=== PATIENT | female | born 1960 | race Caucasian/White ===

== ENCOUNTER 2018-03-12 10:30 | Outpatient (CLI) | payer MEDICARE, MEDICAID | END 2018-03-12 10:31 | disposition home or self-care (01) | LOC: BICULT 10:30 | PROVIDERS: ATTEND Internal Medicine Nephrology | DX: Z12.31 Encounter for screening mammogram for malignant neoplasm of breast (principal); I12.9 Hypertensive chronic kidney disease with stage 1 through stage 4 chronic kidney disease, or unspecified chronic kidney disease; N18.3 Chronic kidney disease, stage 3 (moderate) | CPT/HCPCS: 76700; 76770; 77063; 77067 ==

== ENCOUNTER 2019-04-09 20:30 | Outpatient (CLI) | payer MEDICARE, MEDICAID | END 2019-04-09 20:31 | disposition home or self-care (01) | LOC: SLEEPLAB 20:30 | PROVIDERS: ATTEND Internal Medicine Cardiovascular Disease | DX: G47.33 Obstructive sleep apnea (adult) (pediatric) (principal); I10 Essential (primary) hypertension; G47.00 Insomnia, unspecified; G47.10 Hypersomnia, unspecified; K21.9 Gastro-esophageal reflux disease without esophagitis; M79.606 Pain in leg, unspecified; E66.9 Obesity, unspecified; Z68.30 Body mass index [BMI] 30.0-30.9, adult | CPT/HCPCS: 95810 ==

== ENCOUNTER 2019-08-03 13:19 | Outpatient (CLI) | payer MEDICARE, MEDICAID ==
--- NOTE | 2019-08-03 13:57 | RAD ---
Exam: 3 views left toes HISTORY: Pain. Injury. Dropped walker on her foot. Fourth and fifth pain. FINDINGS: No fracture, cortical irregularity or periosteal reaction. Preserved joint spaces. IMPRESSION: No fracture.
--- NOTE | 2019-08-03 14:02 | RAD ---
Exam:3 views left foot HISTORY: Fourth and fifth digit pain. Patient dropped walker on foot. COMPARISON: None FINDINGS: Lisfranc alignment is maintained. Preserved joint spaces. Degenerative change involving the midfoot. Mild forefoot swelling. There appears be a nondisplaced fracture involving the proximal aspect of the proximal phalanx of the fourth digit. This finding is not appreciated on the left toe r adiograph series. With regards to the remainder of the left foot, no fracture, cortical irregularity or periosteal reaction. IMPRESSION: 1. Soft tissue swelling. There appears to be a nondisplaced fracture involving the proximal phalanx o f the fourth digit. This fracture is not appreciated on the left toe radiograph series. Correlate clinically for point tenderness.
== END 2019-08-03 13:20 | disposition home or self-care (01) ==
LOC: BICRAD 13:19
DX: S99.922A Unspecified injury of left foot, initial encounter (principal); M79.89 Other specified soft tissue disorders
CPT/HCPCS: 36415; 80061; 80076

== ENCOUNTER → 2019-08-20 | Day surgery (SDC) | payer MEDICARE, MEDICAID ==
[2019-08-19 10:56] VITALS: BMI 32.3
[~2019-08-20] MED LIST: PROPOFOL 200 MG/20 ML VIAL ONE
--- NOTE | 2019-08-20 14:31 | OP ---
DATE OF PROCEDURE: 08/20/2019 PROCEDURE PERFORMED: Colonoscopy. PREPROCEDURE DIAGNOSIS: Average risk colon cancer screening. POSTPROCEDURE DIAGNOSES: 1. Exam to cecum; good bowel preparation. 2. Moderately edematous, somewhat prominent appendiceal orifice in the cecum. 3. No polyps or diverticulosis identified. 4. Hypertrophied anal papilla and small internal hemorrhoids. 5. Otherwise, normal colonoscopy. DESCRIPTION OF PROCEDURE: Written informed consent was obtained. The patient was brought to the endoscopy suite. Total intravenous anesthesia was administered by Dr. Plaza and associates. The patient was placed in the left lateral decubitus position. A digital rectal exam showed several small perianal tags. A Pentax video colonoscope was inserted through the anal canal and advanced under direct visualization to the cecum. Position in the cecum was verified by clear identification of the appendiceal orifice and the ileocecal valve. The quality of the bowel preparation was good. Each colon segment was examined carefully as the colonoscope was slowly withdrawn from the cecum. Vascular pattern and haustral folds appeared normal. In the cecum, the appendiceal orifice appeared somewhat prominent and moderately swollen. The overlying mucosa was intact. There was no obvious mass or inflammation. No polyps or diverticula were identified. In the rectum, a retroflexed view demonstrated hypertrophied anal papilla and small internal hemorrhoids. The colon was decompressed as the colonoscope was removed from the patient. She was transferred to the Day Stay surgery area for postprocedure monitoring. There were no immediate complications. RECOMMENDATIONS: 1. Resume previous diet. 2. Resume previous medications. 3. Obtain CT scan of the abdomen, appendix protocol, to further evaluate the appendix. 4. Repeat colonoscopy in 10 years for colon cancer screening. 5. Call me the day after the CT scan is performed for test results. 6. Follow up in GI Clinic as needed. Job ID: [id number]
== END ==
LOC: SDC 10:37
PROVIDERS: ATTEND Internal Medicine Gastroenterology
PROC: 0DJD8ZZ Inspection of Lower Intestinal Tract, Via Natural or Artificial Opening Endoscopic (ICD-10-PCS; principal; 2019-08-20)
DX: Z12.11 Encounter for screening for malignant neoplasm of colon (principal); K63.89 Other specified diseases of intestine; K62.89 Other specified diseases of anus and rectum; K64.8 Other hemorrhoids; I12.9 Hypertensive chronic kidney disease with stage 1 through stage 4 chronic kidney disease, or unspecified chronic kidney disease; N18.9 Chronic kidney disease, unspecified; R73.03 Prediabetes; M06.9 Rheumatoid arthritis, unspecified; Z79.82 Long term (current) use of aspirin; Z79.899 Other long term (current) drug therapy; Z88.1 Allergy status to other antibiotic agents
CPT/HCPCS: 93005; G0121; 93010; J2704

== ENCOUNTER 2019-08-27 11:04 | Outpatient (CLI) | payer MEDICARE, MEDICAID ==
--- NOTE | 2019-08-27 12:30 | CT ---
CT ABDOMEN AND PELVIS WITH ORAL AND IV CONTRAST: HISTORY: Abnormal findings on diagnostic imaging over parts of digestive tract. Abnormal colonoscopy. FINDINGS: The lung bases are unremarkable. No calcified gallstones are seen. The liver, spleen, pancreas, adr enal glands, and the left kidney appear normal. There are cysts in the right kidney measuring up to 1.5 cm. No calcified gallstones are seen. No free air, free fluid, or lymphadenopathy is noted in t he abdomen or pelvis. The small bowel loops are not abnormally dilated. A normal-appearing appendix is present. There are vascular calcifications without evidence of aneurysmal dilatation of the abdominal aorta. There are mild degenerative changes in the spine. Uterus and ovaries are present. IMPRESSION: Right renal cysts. POS: [facility]
== END 2019-08-27 11:05 | disposition home or self-care (01) ==
LOC: BICCT 11:04
PROVIDERS: ATTEND Internal Medicine Gastroenterology
DX: R93.3 Abnormal findings on diagnostic imaging of other parts of digestive tract (principal); N28.1 Cyst of kidney, acquired
CPT/HCPCS: 74177